=== PATIENT | female | born 1945 | race Caucasian/White ===

== ENCOUNTER → 2017-07-23 | Outpatient (CLI) | payer MEDICARE ==
--- NOTE | 2017-07-23 10:35 | Diagnostic Imaging Report ---
PROCEDURE: MRI lumbar spine. TECHNIQUE: Multiplanar, multisequence MRI of the lumbar spine was performed without contrast. INDICATION: Back pain. COMPARISON: None. FINDINGS: Alignment of the lumbar column is normal. There is no subluxation or fracture. Degenerative changes seen throughout the disc spaces and facet joints. Conus medullaris and nerve roots are grossly normal. There is no paraspinous mass. T12-L1, L1-L2, L2-L3: There is disc space narrowing with facet and ligament flavum hypertrophy. However, no foraminal or central canal stenosis is seen. L3-L4: Disc space narrowing with moderate facet and ligament flavum hypertrophy is seen. There is a mild central canal stenosis without foraminal stenosis. At L4-L5: Broad-based circumferential disc bulge with facet ligament flavum hypertrophy is seen. There is a severe central canal stenosis without overt foraminal stenosis. There is a degree of lateral recess stenosis. L5-S1: Broad-based circumflex central disc bulge with facet and ligament flavum hypertrophy is seen. There is a mild central canal stenosis. Bilateral neural foramen are patent. IMPRESSION: 1. Multilevel degenerative changes as described above. This is most pronounced at L4-L5. 2. No traumatic malalignment or fracture. Dictated by: Dictated on workstation # [id number]
== END ==
LOC: RAD 09:47
PROVIDERS: ATTEND Physician Assistant
DX: M48.07 Spinal stenosis, lumbosacral region (principal); M51.27 Other intervertebral disc displacement, lumbosacral region; M51.36 Other intervertebral disc degeneration, lumbar region
CPT/HCPCS: 72148

== ENCOUNTER → 2018-07-06 | Outpatient (CLI) | payer MEDICARE ==
--- NOTE | 2018-07-06 12:27 | Diagnostic Imaging Report ---
INDICATION: Pain behind left shoulder blade as well as congestion. PA and lateral views of the chest were obtained. FINDINGS: The heart size, mediastinal configuration, and pulmonary vascularity are within normal limits. There is no pleural effusion, pneumothorax, or pneumonia. The osseous structures are unremarkable. IMPRESSION: No acute cardiopulmonary abnormality. Dictated by: Dictated on workstation # [id number]
== END ==
LOC: RAD 11:17
PROVIDERS: ATTEND Internal Medicine Cardiovascular Disease
DX: E78.2 Mixed hyperlipidemia (principal); E66.9 Obesity, unspecified; I10 Essential (primary) hypertension; R07.89 Other chest pain
CPT/HCPCS: 71046

== ENCOUNTER → 2018-07-13 | Outpatient (CLI) | payer MEDICARE | LOC: CARD 13:16 | PROVIDERS: ATTEND Internal Medicine Cardiovascular Disease | DX: R07.89 Other chest pain (principal); E66.9 Obesity, unspecified; E78.2 Mixed hyperlipidemia; I10 Essential (primary) hypertension | CPT/HCPCS: 93306 ==

== ENCOUNTER → 2018-07-19 | Outpatient (CLI) | payer MEDICARE ==
[~2018-07-19] VITALS: Ht 149.9 cm; Wt 75.3 kg
[~2018-07-19] MED LIST: CATHETER FLUSH 10 ML SYR IV PRN; REGADENOSON 0.4 MG/5 ML SYR (LEXISCAN) IV ONE
--- NOTE | 2018-07-20 02:51 | STRESS TEST ---
DATE OF SERVICE: 07/19/2018 LEXISCAN MYOVIEW STRESS TEST REPORT REFERRING PHYSICIAN: Dr. Franchesca Thomas. Baseline heart rate is 63, baseline blood pressure 143/67. Baseline EKG is sinus rhythm with right bundle branch block. In summary, the patient was injected with 10.84 mCi of technetium-99 Myoview and the resting images were obtained. Then, the patient received 0.4 mg of Lexiscan followed by 30.9 mCi of technetium-99 Myoview. Throughout the test, there were no EKG changes. The resting and stress images were reviewed and compared in the short axis, horizontal long axis, and vertical long axis views. Review of the images showed good radiotracer uptake with no significant ischemia or infarction on SPECT images. SSS is 1, SDS 1, TID value 0.99. On the gated images, the left ventricle appeared to be in normal size with normal contractility. Calculated ejection fraction 75%. CONCLUSION: 1. The patient tolerated Lexiscan well. 2. No ischemia or infarction on SPECT images. 3. Normal left ventricular size with normal contractility. Calculated ejection fraction 75%. Job ID: [id number] DocumentID: [id number] Dictated Date: 07/19/2018 21:02:37 [employer] Worker Date: 07/20/2018 02:51:00 Dictated By: RISA HUFFMAN MD
== END ==
LOC: CARD 10:56
PROVIDERS: ATTEND Internal Medicine Cardiovascular Disease
DX: R07.89 Other chest pain (principal); I10 Essential (primary) hypertension; E78.2 Mixed hyperlipidemia; E66.9 Obesity, unspecified; Z68.33 Body mass index [BMI] 33.0-33.9, adult
CPT/HCPCS: 78452; 93017

== ENCOUNTER 2022-07-26 12:27 | Outpatient (CLI) | payer MEDICARE | END 2022-07-26 12:48 | LOC: SLEEP 12:27 | PROVIDERS: ATTEND Family Medicine | DX: G47.33 Obstructive sleep apnea (adult) (pediatric) (principal); G47.39 Other sleep apnea; G47.10 Hypersomnia, unspecified; I10 Essential (primary) hypertension; F39 Unspecified mood [affective] disorder | CPT/HCPCS: G0399 ==

== ENCOUNTER 2022-09-16 19:21 | Outpatient (CLI) | payer MEDICARE | END 2022-09-17 06:50 | disposition home or self-care (01) | LOC: SLEEP 19:21 | PROVIDERS: ATTEND Family Medicine | DX: G47.33 Obstructive sleep apnea (adult) (pediatric) (principal); I10 Essential (primary) hypertension | CPT/HCPCS: 95811 ==